=== PATIENT | male | born 1970 | race Caucasian/White ===

== ENCOUNTER 2017-12-15 09:00 | Outpatient (RCR) | payer OTHER, BC, SELFPAY | END 2017-12-15 09:01 | disposition home or self-care (01) | LOC: PT 09:00 | PROVIDERS: Family Provider Internal Medicine Adolescent Medicine; PCP Nurse Practitioner | DX: S39.012A Strain of muscle, fascia and tendon of lower back, initial encounter (principal) | CPT/HCPCS: 97010; 97012; 97014; 97110; 97140; G0283 ==

== ENCOUNTER → 2019-06-16 07:58 | Outpatient (CLI) | payer BC, SELFPAY ==
[2019-06-16 08:46] LABS: Basophils # 0.1 K/mm3 (0-0.2); Basophils % 0.9 % (0.1-2.0); Eosinophils # 0.2 K/mm3 (0.0-0.4); Eosinophils % 2.9 % (0.1-12.0); Hematocrit 50.6 % (42.0-52.0); Hemoglobin 16.1 g/dL (14.1-18.0); Lymphocytes # 1.4 K/mm3 (0.7-4.5); Lymphocytes % 21.8 % (10-50); Mean Corpuscular HGB Conc 31.9 g/dL (31.8-35.4); Mean Corpuscular Hemoglobin 29.2 pg (27.0-31.2); Mean Corpuscular Volume 91.6 fl (80-94); Mean Platelet Volume 7.5 fl (7.4-10.4); Monocytes # 0.4 K/mm3 (0.1-1.0); Monocytes % 6.5 % (1.7-9.3); Neutrophils # 4.4 K/mm3 (1.8-7.8); Neutrophils % 67.9 % (37.0-80.0); Platelet Count 232 K/mm3 (142-424); Red Blood Count 5.52 M/mm3 (4.60-6.20); White Blood Count 6.4 K/mm3 (4.8-10.8)
[2019-06-16 09:55] LABS: Alanine Aminotransferase 56 U/L (12-78); Albumin/Globulin Ratio 1.2 (1.1-1.8); Alkaline Phosphatase 69 U/L (46-116); Anion Gap 12.6 mEq/L (5-15); Aspartate Amino Transferase 40 U/L (15-37); Bilirubin,Total 0.5 mg/dL (0.2-1.0); Blood Urea Nitrogen 19 mg/dL (7-18); Calcium 9.2 mg/dL (8.5-10.1); Carbon Dioxide 28 mmol/L (21.0-32.0); Chloride 105 mmol/L (98-107); Chol/HDL Ratio 4.7 (1-3.5); Cholesterol 156 mg/dL (140-200); Creatinine,Serum 1.08 mg/dL (0.70-1.30); Estimated Glomerular Filt Rate 72 ml/min (>60); GFR (African American) 88 ML/MIN (>60); Globulin 3.4 gm/dl (1.3-3.2); Glucose 101 mg/dL (74-106); HDL Cholesterol 33 mg/dL (27-67); LDL Cholesterol 97 mg/dL (0-130); Potassium 4.6 mmoL/L (3.5-5.1); Sodium 141 mmol/L (136-145); Total Protein,Serum 7.4 gm/dL (6.4-8.2); Triglycerides 129 mg/dL (30-200); VLDL Cholesterol 26 mg/dL (0-40)
== END ==
PROVIDERS: PCP Internal Medicine Adolescent Medicine; Visit Provider Internal Medicine Adolescent Medicine
DX: Z00.00 Encounter for general adult medical examination without abnormal findings (principal); I10 Essential (primary) hypertension
CPT/HCPCS: 36415; 80053; 80061; 85025; G0103

== ENCOUNTER 2020-01-31 10:00 | Outpatient (RCR) | payer BC, SELFPAY ==
--- NOTE | 2019-12-26 12:39 | HMH.PTOPEV ---
PT Outpatient Evaluation Rehab PT Outpatient Evaluation Start: 12/26/19 11:35 Freq: Status: Active Protocol: Document 12/26/19 11:35 YENY (Rec: 12/26/19 12:39 YENY [id number]) Electronically Signed By Akbar Trevizo, PT 12/26/19 11:35 Outpatient Therapy Subjective History Subjective History Pt reports h/o chronic L sided LBP, however, reports exacerbation since 2018. Pt reports repeatitive activity after working 26yrs at [employer] 'hasn't helped'. Pt retired from [employer] on November 18 2019, however, reports same or worse LBP. Pt reports L>R sided LBP currrently, with intermittent L LE radicular s/ s to foot/ankle. (weakness, pain, itchy sensation) Chief Complaint Pain,Paresthesia,Weakness Symptom Type Ache,Sharp,Dull Symptoms Relieved By Rest/Positioning,Heat Symptoms Aggravated By Bending/Stooping,Physical Activity,Lifting Prior Functional Limitations Lifting,Housework Current Functional Limitations Lifting,Housework,Sleeping, Sitting,Recreation Activity, Bending/Stooping Symptom Description Constant but Variable Level of pain today (0-10) 2 Pain scale - at its best (0-10) 2 Pain scale - at its worst (0-10) 8 Lumbopelvic Eval Posture Thoracic Spine Posture Standing Position Neutral Lumbar Spine Posture Standing Position Neutral Assistive device Assistive Devices None / NA Gait Observation General Gait Pattern Observation Antalgic Gait Palapation tenderness left lumbar spinal tenderness Yes: 3/4 paraspinal tenderness Yes: 3/4 buttock tenderness Yes: 3/4 Lumbar/Sacral Palpation Findings Tenderness,Trigger Point Accessory Movement T-spine Vertebrae Accessory Movements [employer] [place] that Elicit Symptoms L4 left L5 left Range of Motion Lumbar Spine Active Flexion Range of 0-35 Motion (degrees) Lumbar Spine Active Extension Range of 0-15 Motion (degrees) Left Lumbar Spine Lateral Flexion Active 0-20 Range of Motion (degrees) Right Lumbar Spine Lateral Flexion 0-20 Active Range of Motion (degrees) Lumbar Spine ROM Limitations Soft Tissue Tightness,Pain Manual Muscle Test Right Knee Extension Strength Grade 5 Normal Knee Flexion Strength Grade 5 Normal Hip Flexion Strength Grade 5 Normal
--- NOTE | 2020-01-29 11:11 | HMH.RHREAS ---
Rehab Reassessment Rehab OP Re-assessment Start: 01/29/20 11:06 Freq: Status: Active Protocol: Document 01/29/20 11:07 YENY (Rec: 01/29/20 11:11 YENY [id number]) Electronically Signed By Akbar Trevizo, PT 01/29/20 11:07 Rehab Re-assessment Subjective Subjective PT REPORTS 3-4/10 LBP ON VAS, W/RADICULAR S/S INTO L LE, AND REPORTS NO SIGNIFICANT IMPROVEMENTS SINCE I EVAL Objective Objective Notes AROM: L-SPINE FLX 0-25, EXT 0- 10, R SB 0-20, L SB 0-30-MOST PAINFUL DIRECTION W/ PERIPHEREALIZATION OF S/S MMT: L HIP FLX 4-/5, L HS 4-/5 TTP: L LUMBAR PARA 2/4, L PIRI MM 3/4 Assessment Progress Assessment No Progress Assessment Notes PT SEEKING FOLLOW-UP APPT W/ PCP AND POSSIBLE MRI Patient goals met STG'S 09/28 Goals Not Met STG'S 05/29, LTG'S ALL Plan Plan PT TO HOLD SKILLED P.T. FOLLOWING THIS VISIT D/T LACK OF PROGRESS, AND SEEK FOLLOW- UP W/PCP AND LUMBAR SPINE MRI Time and Billing Re-Eval Time 15 Re-Eval Billing Units 1 PHYSICIAN CERTIFICATION: I certify the specified therapy services for Ernesto Weaver are required, authorized, and reviewed every 30 days.
== END 2020-01-31 10:05 | disposition home or self-care (01) ==
LOC: PT 10:00
PROVIDERS: PCP Internal Medicine Adolescent Medicine; Visit Provider Internal Medicine Adolescent Medicine
DX: M54.42 Lumbago with sciatica, left side (principal)
CPT/HCPCS: 20560; 20561; 97010; 97012; 97014; 97035; 97110; 97140; 97163; 97164; G0283

== ENCOUNTER → 2020-02-07 14:12 | Outpatient (CLI) | payer BC, SELFPAY ==
--- NOTE | 2020-02-07 14:26 | MR_ITS ---
PROCEDURE: MR LUMBAR SPINE WO CON CLINICAL INDICATION: ACUTE LEFT SIDED LOW BACK PAIN WITH SCIATICA Low back pain, pain across back and down left leg the COMPARISON: No exams were available for comparison TECHNIQUE: Standard multiplanar multiecho sequences are performed without contrast. 3-D MIP and myelographic images are also rendered and reviewed FINDINGS: The spinal cord ends at the L1 level. T12-L1: Unremarkable. L1-L2: Unremarkable. L2-L3: Unremarkable. L3-L4: Unremarkable. L4-5: Unremarkable. L5-S1: There is grade 1 spondylitic spondylolisthesis of L5 on S1 of 8 mm with degenerative disc disease with bulging disc along with posterior annular fissure with associated facet hypertrophic change and severe bilateral foraminal narrowing. No extruded herniated disc evident. IMPRESSION: There is grade 1 spondylitic spondylolisthesis of L5 on S1 of 8 mm with degenerative disc disease with bulging disc along with posterior annular fissure with associated facet hypertrophic change and severe bilateral foraminal narrowing. No extruded herniated disc or canal stenosis evident. Dictated by: Andrade Coleman MD 02/08/2020 13:29 Electronically signed by Andrade Coleman MD in [place] 02/08/2020 13:29
== END ==
PROVIDERS: PCP Internal Medicine Adolescent Medicine; Visit Provider Internal Medicine Adolescent Medicine
DX: M54.42 Lumbago with sciatica, left side (principal)
CPT/HCPCS: 72148; 76376

== ENCOUNTER 2020-08-18 17:39 | Emergency (ER) | payer BC, SELFPAY ==
[2020-08-18 17:45] VITALS: BP 134/88; PULSE 78; RESP 18; TEMP 36.7; O2SAT 95; BMI 35.2
--- NOTE | 2020-08-18 18:21 | HMH.EDUTC ---
[facility] [place] Clinical Impression: Exposure to COVID-19 virus Disposition: Home, Self-Care Condition on Discharge: Good Instructions: Preventing the Spread of Coronavirus Discharge Instructions Additional Instructions: Drink plenty of fluids. Take tylenol for pain or fever. Return if you begin to have difficulty breathing. Follow up with your regular doctor. GO TO THE ER FOR ANY WORSENING SYMPTOMS Referrals: Todd Kuhn MD [Primary Care Provider] - Time of Disposition: 18:24 Medical Decision Making - Medical Records Medical records reviewed: No: I reviewed the patient's medical records. - Jaden Inquiry Pt receiving controlled substance: No Vital Signs: 08/18/20 17:45 Temperature 98.1 F Temperature Source Oral Pulse Rate [Left Brachial] 78 Respiratory Rate 18 Blood Pressure [Left Arm] 134/88 Blood Pressure Mean [Left Arm] 103 Blood Pressure Source [Left Arm] Automatic Cuff Blood Pressure Position [Left Arm] Sitting 02 Sat by Pulse Oximetry 95 Oxygen Delivery Method Room Air [facility] [place] - General Stated complaint: covid test Time Seen by Provider: 08/18/20 18:21 Mode of Arrival: Ambulatory Source of Information: Patient Limitations: No Limitations Description of Symptoms (Recalled from Triage Doc. by RN): PATIENT REQUESTING COVID TEST D/T EXPOSURE; DENIES SYMPTOMS HEENT Symptoms (Recalled from RN notes): No Resp Symptoms (Recalled from RN notes): No Skin Symptoms (Recalled from RN notes): No MS Symptoms (Recalled from RN notes): No Functional Status (Recalled from RN notes): WNL - History of Present Illness Provider Complaint: His son was diagnosed with covid around 1 week ago. This patient has not had any symptoms. He needs a test for his employer. - Related Data Home Medications Medication Instructions Recorded Confirmed Aspirin [Aspir 81] 81 mg PO DAILY 10/15/19 10/22/19 Nebivolol HCl [Bystolic] 5 mg PO DAILY 10/15/19 10/22/19 Allergies Allergy/AdvReac Type Severity Reaction Status Date / Time No Known Allergies Allergy Verified 10/15/19 14:02 - Worker's Comp Is this a Worker's Comp case?: No [facility] History - Hepatitis A Screen Drug use history?: No High risk sexual behaviors?: No History of sexually transmitted infection?: No Currently employed?: No Childcare worker?: No Do you have indoor plumbing?: Yes Do you have electricity?: Yes Attestation statement:: This patient has been screened for Hepatitis A risk factors. I have reviewed the patient's past medical history: Yes Medical History: Reports:: Hypertension Denies:: Cancer, Diabetes Mellitus Type 1, Diabetes Mellitus Type 2, Internal Pacemaker, MRSA, Seizures Laterality Cases: Left: Arthroscopy Shoulder, Bilateral: Carpal Tunnel Release Other Surgeries: No: Pacemaker Amputation: No Fractures: No - Social History Smoking Status: Current every day smoker # Packs/Day (cigarettes): 1 Alcohol Intake: never Occupational Status: other Housing: house Household Members: family Family Hx:: No significant family history ROS Obtained: Yes All systems reviewed & no additional complaints - Constitutional Constitutional: Reports system reviewed and no additional complaints, except as docu - Eyes Eyes: Reports system reviewed and no additional complaints, except as docu - ENT Ears, Nose, Mouth, and Throat: Reports system reviewed and no additional complaints, except as docu - Cardiovascular Cardiovascular: Reports system reviewed and no additional complaints, except as docu - Respiratory Respiratory: Yes system reviewed and no additional complaints, except as docu - Gastrointestinal Gastrointestingal: Reports: system reviewed and no additional complaints, except as docu Physical Exam - General General appearance: alert, in no apparent distress - Head Head exam: atraumatic, normocephalic, normal inspection - Eye Eye exam: Present: normal appearance, PERRL, EOMI - ENT ENT
[2020-08-18 18:26] VITALS: BP 134/88; PULSE 78; RESP 18; TEMP 36.7; O2SAT 95
[2020-08-21 09:43] LABS: Covid-19 Nasal PCR Sendout Lex NOT DETECTED
== END 2020-08-18 18:30 | disposition home or self-care (01) ==
PROVIDERS: Emergency Provider Nurse Practitioner Family; PCP Internal Medicine Adolescent Medicine
DX: Z20.828 Contact with and (suspected) exposure to other viral communicable diseases (principal); I10 Essential (primary) hypertension; F17.210 Nicotine dependence, cigarettes, uncomplicated; Z79.899 Other long term (current) drug therapy
CPT/HCPCS: 99201; U0004

== ENCOUNTER → 2020-12-16 16:37 | Outpatient (CLI) | payer BC, SELFPAY ==
[2020-12-16 17:48] LABS: Chloride 104 mmol/L (98-107); Potassium 4.2 mmoL/L (3.5-5.1); Sodium 138 mmol/L (136-145)
[2020-12-16 17:51] LABS: Alanine Aminotransferase 39 U/L (12-78); Albumin Level 4.7 g/dl (3.5-5.0); Albumin/Globulin Ratio 1.8 (1.1-1.8); Alkaline Phosphatase 73 U/L (38-126); Anion Gap 11.2 mEq/L (5-15); Aspartate Amino Transferase 46 U/L (17-59); Bilirubin,Total 0.5 mg/dl (0.2-1.3); Blood Urea Nitrogen 19 mg/dl (9-20); Carbon Dioxide 27 mmol/L (22.0-30.0); Estimated Glomerular Filt Rate 89 ml/min (>60); GFR (African American) 108 ML/MIN (>60); Globulin 2.6 g/dL (1.3-3.2); Total Protein,Serum 7.3 g/dl (6.3-8.2)
[2020-12-16 17:52] LABS: Calcium 9.6 mg/dl (8.4-10.2); Glucose 86 mg/dl (74-100)
== END ==
PROVIDERS: Visit Provider Internal Medicine Adolescent Medicine
DX: I10 Essential (primary) hypertension (principal)
CPT/HCPCS: 36415; 80053

== ENCOUNTER → 2021-05-19 12:13 | Outpatient (CLI) | payer BC, SELFPAY ==
--- NOTE | 2021-05-19 | CA_ITS ---
APPROVED REPORT Exam: Exercise Treadmill Technologist: Chrissie Sebly Ht: 5 ft 11 in Wt: 235 lbs BSA: 2.26 m2 HR: 50 bpm BP: 126/78 mmHg Indications: Shortness of Breath Medical History Medications: Aspirin,,,,, Bystolic,,,,, Stress Test Details Test: Elvis HR Resting HR: 51 bpm Max Heart Rate (APMHR): 168.843011 bpm Max HR Achieved: 114 bpm Target HR (85% APMHR): 142.498627 bpm % of APMHR: 67.86 Recovery HR: 66 bpm BP Resting BP: 126.0/78.0 mmHg Max BP: 160.0/70.0 mmHg Recovery BP: 134.0/78.0 mmHg ECG Resting ECG: Marked sinus bradycardia. Clinical Exercise duration: 10:00 min Highest Stage Achieved: Exercise capacity: 12.8 METs Stress ECG Conclusion Patient exercised 10:00 on Elvis Protocol. Test stopped due to shortness of air, fatigue. Symptoms: No chest pain. Arrhythmias/Ectopy: Occasional PAC, rare PVC. ST-T Changes: Normal ST response to heart rate achieved. Conclusion: Normal GXT to heart rate achieved (68% of PM). Blunted heart rate on Bystolic. Myoview images reported separately. Test Summary RECOVERY 05:00 0.0 0.0 65 . 134/ 78 . . REST . . . . . . . Standing REST 04:12 0.0 0.0 51 . 126/ 78 . . Stage 1 01:00 10.0 1.7 74 . . . . Stage 1 02:00 10.0 1.7 78 . . . . Stage 1 03:00 10.0 1.7 78 . 126/ 70 . . Stage 2 01:00 12.0 2.5 84 . . . . Stage 2 02:00 12.0 2.5 86 . . . . Stage 2 03:00 12.0 2.5 90 . 128/ 68 . . Stage 3 01:00 14.0 3.4 97 . . . . Stage 3 02:00 14.0 3.4 98 . 146/ 70 . . Stage 3 . . . . . . . Myoview Injected Stage 3 03:00 14.0 3.4 98 . 146/ 70 . . Stage 4 01:00 16.0 4.2 114 . . . Stop exercise at 10:00 RECOVERY 01:00 0.0 0.0 87 . 160/ 70 . . RECOVERY 02:00 0.0 0.0 69 . 160/ 70 . . RECOVERY 03:00 0.0 0.0 70 . 157/ 81 . . RECOVERY 04:00 0.0 0.0 63 . 157/ 81 . . RECOVERY 05:00 0.0 0.0 65 . 134/ 78 . . RECOVERY 05:21 0.0 0.0 62 . 134/ 78 . . Electronically signed by : Filiberto Velasquez MD 05/19/2021 19:18:20
--- NOTE | 2021-05-19 12:19 | NM_ITS ---
APPROVED REPORT Exam: Nuclear Stress Test Indication: chest pain Patient Location: Outpatient Stress Tech: Chrissie Selby [place] Tech:Rose Gillette, MIKYT, RT (R)(N) Ht: 5 ft 11 in Wt: 235 lbs HR: 50 bpm BP: 126/78 mmHg BSA: 2.26 m2 BMI: 32.7 History: chest pain Procedure: Patient exercised on Elvis protocol 10 minutes and sec, resting heart rate 50 bpm, resting blood pressure 126/78 mmHg, with exercise maximum heart rate achived was 114 bpm which is 68 % of the maximum predicted heart rate and blood pressure was 160/70 mmHg. Test was stopped due to soa and fatigue. Patient denied any complaint of chest pain. Patient has good exercise capacity, achieved 12.8 METs of workload on treadmill, the blood pressure response to exercise was Adequate. Electrocardiogram Resting electrocardiogram shows sinus rhythm, with exercise there is less than 1.[address] segment depression noted from the baseline EKG. The EKG portion of the exercise Myoview was nondiagnostic as patient did not achieve the target heart rate. Cardiac Stress and Resting SPECT Images: Cardiac Stress and Resting SPECT images were obtained using technetium 99m Myoview 31.3 mCi stress and 10.30 mCi at rest. Gated SPECT for analysis of segmental wall motion and calculation of the ejection fraction also done. Prone images were also obtained. Cardiac stress and rest SPECT images show uniform myocardial activity without segmental perfusion abnormality, computer derived ejection fraction is 50% with no regional wall motion abnormality, right ventricle is mildly enlarged with normal contractility. Conclusion: 1. The EKG portion of the exercise Myoview is nondiagnostic as patient did not achieve the target heart rate, patient has good exercise capacity achieved 12.8 mets of workload on treadmill, the blood pressure response to exercise was adequate, there was no exercise-induced chest discomfort. 2. No scintigraphic evidence of reversible ischemia seen at this level of exercise, computer derived ejection fraction is 50% with no regional wall motion abnormality, right ventricle is mildly enlarged with normal contractility. Electronically signed by : Filiberto Velasquez MD 05/19/2021 19:46:31
--- NOTE | 2021-05-19 14:06 | HMH.ITSHM ---
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 []BYSTOLIC ASA
== END ==
LOC: RAD 12:14
PROVIDERS: PCP Internal Medicine Adolescent Medicine; Visit Provider Nurse Practitioner Family
DX: R06.02 Shortness of breath (principal); R07.9 Chest pain, unspecified
CPT/HCPCS: 78452; 93017; A9502

== ENCOUNTER → 2021-07-27 09:06 | Outpatient (CLI) | payer BC, SELFPAY | PROVIDERS: PCP Internal Medicine Adolescent Medicine; Visit Provider Nurse Practitioner | DX: Z20.822 Contact with and (suspected) exposure to COVID-19 (principal) | CPT/HCPCS: C9803; U0003; U0005 ==

== ENCOUNTER → 2021-09-17 07:53 | Outpatient (CLI) | payer BC, SELFPAY ==
[2021-09-17 09:15] LABS: Alanine Aminotransferase 67 U/L (12-78); Albumin Level 4.4 g/dl (3.5-5.0); Albumin/Globulin Ratio 1.6 (1.1-1.8); Alkaline Phosphatase 65 U/L (38-126); Anion Gap 13.6 mEq/L (5-15); Aspartate Amino Transferase 50 U/L (17-59); Bilirubin,Total 0.4 mg/dl (0.2-1.3); Blood Urea Nitrogen 15 mg/dl (9-20); Calcium 9.7 mg/dl (8.4-10.2); Carbon Dioxide 31 mmol/L (22.0-30.0); Chloride 102 mmol/L (98-107); Chol/HDL Ratio 4.8 (1-3.5); Cholesterol 173 mg/dl (140-200); Estimated Glomerular Filt Rate 78 ml/min (>60); GFR (African American) 95 ML/MIN (>60); Globulin 2.7 g/dL (1.3-3.2); Glucose 86 mg/dl (74-100); HDL Cholesterol 36 mg/dl (40-60); Potassium 4.6 mmoL/L (3.5-5.1); Sodium 142 mmol/L (136-145); Total Protein,Serum 7.1 g/dl (6.3-8.2); Triglycerides 272 mg/dl (30-150); VLDL Cholesterol 54 mg/dL (0-40)
[2021-09-17 09:26] LABS: Direct LDL Cholesterol 87.96 mg/dL (100-129)
== END ==
PROVIDERS: Visit Provider Nurse Practitioner Family
DX: Z00.00 Encounter for general adult medical examination without abnormal findings (principal); R07.9 Chest pain, unspecified; R06.02 Shortness of breath
CPT/HCPCS: 36415; 80053; 80061

== ENCOUNTER 2022-01-31 11:31 | Emergency (ER) | payer BC, SELFPAY ==
[2022-01-31 11:40] VITALS: BP 132/82; PULSE 86; RESP 19; TEMP 36.7; O2SAT 98; BMI 33.5
--- NOTE | 2022-01-31 11:59 | HMH.EDUTC ---
[facility] [place] Disposition Clinical Impression: Otitis media Qualifiers: Otitis media type: suppurative Chronicity: acute Laterality: right Recurrence: non-recurrent Spontaneous tympanic membrane rupture: without spontaneous rupture Qualified Code(s): H66.001 - Acute suppurative otitis media without spontaneous rupture of ear drum, right ear Disposition: Home, Self-Care Condition on Discharge: Good Instructions: Middle Ear Infection Additional Instructions: Start antibiotic as soon as possible and be sure to take as ordered for full length of time even though he should start feeling better in 24-48 hours. Tylenol or Motrin as needed for pain or fever Encourage fluids, water, Gatorade, Powerade, Pedialyte if /toddler/child Warm compresses often helps when placed over ear Return immediately for new or worsening symptoms no noticeable improvement in 48-72 hours and in 10-14 days to ensure the ears are return to baseline. Follow-up with primary care Prescriptions: Amoxicillin [Amoxicillin 500mg Tab] 500 mg PO BID 10 Days #20 tab Transmission Status: Pending to [id number] Referrals: Todd Kuhn MD [Primary Care Provider] - Time of Disposition: 12:15 Medical Decision Making - Jaden Inquiry Pt receiving controlled substance: No Vital Signs: 01/31/22 11:40 Temperature 98.1 F Temperature Source Oral Pulse Rate [Right Brachial] 86 Respiratory Rate 19 Blood Pressure [Right Arm] 132/82 Blood Pressure Mean [Right Arm] 98 Blood Pressure Source [Right Arm] Automatic Cuff Blood Pressure Position [Right Arm] Sitting 02 Sat by Pulse Oximetry 98 Oxygen Delivery Method Room Air - Lab Data Lab Results 01/31/22 11:42: Group A Strep Rapid Negative 01/31/22 11:45: Influenza Type A Ag Negative, Influenza Type B Ag Negative Orders (Tests/Meds): ORDERS Category Date Time Status Strep Screen Confirmation Stat Micro 01/31/22 11:42 Received [facility] [place] HPI - General Chief complaint: Urgent [facility] Stated complaint: sore throat,weakness Time Seen by Provider: 01/31/22 11:59 Mode of Arrival: Ambulatory Source of Information: Patient Limitations: No Limitations Description of Symptoms (Recalled from Triage Doc. by RN): PATIENT C/O SORE THROAT, WEAKNESS, DECREASED ENERGY, RIGHT NECK TENDERNESS, AND BILATERAL EAR PAIN HEENT Symptoms (Recalled from RN notes): Yes Resp Symptoms (Recalled from RN notes): No Skin Symptoms (Recalled from RN notes): No MS Symptoms (Recalled from RN notes): No Functional Status (Recalled from RN notes): WNL - History of Present Illness Provider Complaint: 52 yr old male presents for sore throat, rt neck pain, ear pain, and weakness for 3 days - Related Data Home Medications Medication Instructions Recorded Confirmed Aspirin [Aspir 81] 81 mg PO DAILY 10/15/19 10/22/19 Nebivolol HCl [Bystolic] 5 mg PO DAILY 10/15/19 10/22/19 Previous Rx's Medication Instructions Recorded Amoxicillin [Amoxicillin 500mg Tab] 500 mg PO BID 10 Days #20 tab 01/31/22 Allergies Allergy/AdvReac Type Severity Reaction Status Date / Time No Known Allergies Allergy Verified 10/15/19 14:02 - Worker's Comp Is this a Worker's Comp case?: No [facility] History - Hepatitis A Screen Attestation statement:: This patient has been screened for Hepatitis A risk factors. I have reviewed the patient's past medical history: Yes Medical History: Reports:: Hypertension Denies:: Cancer, Diabetes Mellitus Type 1, Diabetes Mellitus Type 2, Internal Pacemaker, MRSA, Seizures Laterality Cases: Left: Arthroscopy Shoulder, Bilateral: Carpal Tunnel Release Other Surgeries: No: Pacemaker Amputation: No Fractures: No - Social History Smoking Status: Current every day smoker # Packs/Day (cigarettes): 1 Alcohol Intake: never Occupational Status: other Housing: house Household Members: family Family Hx:: No significant family history ROS Obtained: Yes Systems reviewed as appropriate & no additi
[2022-01-31 12:05] LABS: UTC Influenza A Antigen Negative (Negative); UTC Influenza B Antigen Negative (Negative)
[2022-01-31 12:10] LABS: Strep Scrn Group A (Rapid) Negative (Negative)
[2022-01-31 12:16] VITALS: BP 132/82; PULSE 86; RESP 19; TEMP 36.7; O2SAT 98
== END 2022-01-31 12:18 | disposition home or self-care (01) ==
PROVIDERS: Emergency Provider Nurse Practitioner Family; PCP Internal Medicine Adolescent Medicine
DX: H66.001 Acute suppurative otitis media without spontaneous rupture of ear drum, right ear (principal)
CPT/HCPCS: 87430; 87804; 99212; G0463

== ENCOUNTER 2023-08-21 10:37 | Emergency (ER) | payer BC, SELFPAY ==
[2023-08-21 10:39] VITALS: BP 177/101; PULSE 68; RESP 18; TEMP 36.6; O2SAT 98; BMI 32.1
[2023-08-21 10:43] VITALS: BP 177/101; PULSE 66; O2SAT 98
[2023-08-21 10:44] VITALS: BP 173/112; PULSE 66; O2SAT 99
--- NOTE | 2023-08-21 10:50 | XR_ITS ---
PROCEDURE INFORMATION: Exam: XR Chest Exam date and time: 08/21/2023 10:56 AM Age: 53 years old Clinical indication: Cough TECHNIQUE: Imaging protocol: Radiologic exam of the chest. Views: 2 views. COMPARISON: No relevant prior studies available. FINDINGS: Lungs: Unremarkable. No consolidation. Pleural spaces: Unremarkable. No pleural effusion. No pneumothorax. Heart/Mediastinum: Unremarkable. No cardiomegaly. Bones/joints: Unremarkable. IMPRESSION: No acute findings.
--- NOTE | 2023-08-21 10:51 | PC.NURSE ---
DR NGUYEN AT BEDSIDE
--- NOTE | 2023-08-21 10:54 | HMH.EDGENADL ---
Discharge Plan Disposition Patient Disposition: Home, Self-Care Prescriptions Prescriptions: New [id number]-lxepeahft-PP [Bromfed DM] 2-30-10 mg/5 mL syrup 5 ml PO Q6H PRN (Reason: cold symptoms) Qty: 118 0RF No Action amoxicillin 500 MG tablet 500 mg PO BID 10 Days Qty: 20 0RF aspirin 81 MG tablet,delayed release (DR/EC) 81 mg PO DAILY nebivolol 5 MG tablet 5 mg PO DAILY Referrals Follow up/Referrals: Cyn Allen APRN [Primary Care Provider] - See instructions Activity Restrictions/Add. Instructions Additional Instructions/Restrictions: At this time it was felt you are safe to be discharged home. If new or worsening symptoms please do not hesitate to return the emergency department. If symptoms persist please follow-up with your family doctor as you are able. Please take your medication as prescribed. Clinical Impressions Clinical Impression: Upper respiratory infection Discharge ED Provider: Teddy Jhaveri General Adult HPI General Chief complaint: Upper Respiratory Infection Stated complaint: cough,side and back pain,throat scratchy Time Seen by Provider: 08/21/23 10:41 Mode of Arrival: Ambulatory Source of Information: Patient Limitations: No Limitations Description of Symptoms (Recalled from ER Triage Doc. by RN): c/o coughing, irritated throat, middle back pain more on the right when he takes a good breath in. STates that his cough has been non productive and productive at times, symptoms for one week History of Present Illness HPI narrative: Patient is a 53-year-old male with past medical history of hypertension presents emergency department for multiple complaints. Patient has had intermittent productive cough for the last week, scratchy throat. There is associated right paraspinal back pain upon forceful coughing. No other acute complaints at this time. Related Data Home Medications Medication Instructions Recorded Confirmed aspirin 81 mg tablet,delayed 81 mg PO DAILY prevention 10/15/19 10/22/19 release nebivolol 5 mg tablet 5 mg PO DAILY bp 10/15/19 10/22/19 Previous Rx's Medication Instructions Recorded amoxicillin 500 mg tablet 500 mg PO BID 10 days #20 tabs 01/31/22 [id number]-lomntrkwpshhhea-HV 5 ml PO Q6H PRN cold symptoms #118 08/21/23 2 mg-30 mg-10 mg/5 mL oral syrup mL (Bromfed DM) Allergies Allergy/AdvReac Type Severity Reaction Status Date / Time No Known Allergies Allergy Verified 10/15/19 14:02 [facility] Disclaimer: The information contained in this section may have been updated after the patient was seen, as this information can be updated by other users. Social History Smoking Status: Current every day smoker alcohol intake: never current occupational status: other Travel in the last 8 weeks: None household members: family housing: house current occupational exposures/hazards: No caffeine: Yes ROS Obtained: Yes Systems reviewed as appropriate & no additional complaints except as documented Physical Exam General General appearance: alert and in no apparent distress Head Head exam: atraumatic and normocephalic Eye Eye exam: Present PERRL and EOMI ENT ENT exam: Present mucous membranes moist and other (Erythematous posterior oropharynx without exudate) Neck Neck exam: Present normal inspection Chest Chest inspection: Present normal inspection and symmetric chest wall rise Respiratory Respiratory exam: Present normal lung sounds bilaterally; Absent respiratory distress Cardiovascular Cardiovascular exam: Present regular rate and normal rhythm Abdominal Exam Abdominal exam: Present soft; Absent tenderness Extremities Exam Extremities exam: Present normal inspection Neurological Exam Neurological exam: Present alert Psychiatric Psychiatric exam: Present normal affect Skin Skin exam: Present warm and dry Medical Decision Making Jaden Inquiry Pt receiving controlled substance: No
--- NOTE | 2023-08-21 11:06 | PC.NURSE ---
Pt gone to RAD via wheelchair
--- NOTE | 2023-08-21 11:10 | PC.NURSE ---
pt back from xray
[2023-08-21 11:12] LABS: Coronavirus 19, PCR Not Detected (NotDetected); Influenza A, PCR Not Detected (NotDetected); Influenza B, PCR Not Detected (NotDetected)
[2023-08-21 11:22] LABS: Strep Scrn Group A (Rapid) Negative (Negative)
[2023-08-21 11:51] VITALS: BP 120/75; PULSE 60; RESP 18; TEMP 36.8; O2SAT 96
== END 2023-08-21 11:56 | disposition home or self-care (01) ==
PROVIDERS: Emergency Provider Emergency Medicine; PCP Nurse Practitioner Family
DX: J06.9 Acute upper respiratory infection, unspecified (principal); R05.9 Cough, unspecified; M54.6 Pain in thoracic spine; F17.200 Nicotine dependence, unspecified, uncomplicated; I10 Essential (primary) hypertension
CPT/HCPCS: 71046; 87430; 87636; 99284

== ENCOUNTER 2025-05-02 07:56 | Day surgery (SDC) | payer BC, SELFPAY ==
[2025-04-30 14:38] VITALS: BMI 31.4
--- NOTE | 2025-05-01 10:58 | EXP.HP ---
History of Present Illness *Admission Date: 05/02/25 *Reason for visit:: Personal history of adenomatous colon polyps *History of present illness: Mr. Weaver is a 55-year-old gentleman who is here for surveillance/screening colonoscopy secondary to a personal history of adenomatous colon polyps. The patient did have a colonoscopy in October 2019 and had 7 polyps (tubular adenomas x 7) which were removed. The examination is deemed medically necessary for screening/surveillance colonoscopy. The patient has been seen, interviewed and examined prior to the procedure by both myself and the anesthesia provider. [facility] Disclaimer: The information contained in this section may have been updated after the patient was seen, as this information can be updated by other users. Medical History Hyperlipemia Hypertension Surgical History Colonoscopy planned Family History Other No significant family history Social History (Updated 05/02/25 @ 09:04 by Miguel Angel Kulkarni CRNA) Smoking Status: Current every day smoker alcohol intake: never substance use type: denies use current occupational status: other Travel in the last 8 weeks?: None household members: family housing: house current occupational exposures/hazards: No caffeine: Yes Have you lived/traveled outside [place] in past 30 days?: No Contact w/someone who lives/traveled outside [place] past 30 days?: No Exposure to someone with infectious disease in past 14 days?: No Do you have a fever (greater than 100.4 F or 38 C)?: No Have you tested positive for COVID-19?: No Exposed to someone with COVID-19 in past 14 days?: No Do you have a sore throat?: No Do you have a cough?: No Do you have any weakness?: No Are you experiencing any nausea/vomitting?: No Do you have any diarrhea?: No Are you experiencing any unusual bleeding?: No Do you have any muscle aches/pain?: No Do you have any abdominal pain?: No Are you experiencing loss of taste or smell?: No Other Medical History Have you received the Flu Vaccine for this season: Yes Have you received the Pneumonia Vaccine: No Review of Systems Review of Systems Review of systems (narrative): Negative *Cardiovascular Comments: Negative *Gastrointestinal Comments: Negative *Genitourinary Comments: Negative *Musculoskeletal Comments: Negative *Neurologic Comments: Negative Meds Home Medications and Allergies Home Medications ?Medication ?Instructions ?Recorded ?Confirmed ?Type aspirin 81 mg tablet,delayed 81 mg PO DAILY prevention 10/15/19 05/02/25 History release atorvastatin 40 mg tablet 40 mg PO DAILY 04/30/25 04/30/25 History bisoprolol fumarate 5 mg tablet 5 mg PO DAILY 04/30/25 04/30/25 History New Prescriptions to Start Prescriptions: Allergies Allergy/AdvReac Type Severity Reaction Status Date / Time No Known Allergies Allergy Verified 10/15/19 14:02 Exam Data for Last 24 hours I & O for Last 24 hours: Intake & Output 04/28/25 04/29/25 04/30/25 05/01/25 23:59 23:59 23:59 23:59 Weight 225 lb *Routine HEENT Exam Head: Present normocephalic Eye: Present EOMI and PERRL ENT: Present mucous membranes moist *Routine Neck Exam Neck: Present supple *Routine Respiratory Exam Respiratory: Present CTA bilaterally *Routine Cardiovascular Exam Cardiovascular: Present RRR *Routine Abdominal Exam Abdominal: Present soft and normoactive bowel sounds; Absent tenderness *Routine Rectal Exam Rectal:: deferred *Routine Genitalia Exam Genitalia:: deferred *Routine Extremities Exam Extremities: Absent cyanosis, clubbing or edema *Routine Skin Exam Skin: Present warm; Absent rash *Routine Neurological Exam Neurological: Present alert and oriented X3 Assessment and Plan *Assessment and plan (1) Personal history of adenomatous and serrated colon polyps: Status: Acute Category: Medical Code(s): Z86.0101 - Personal history of adenomatous and serrated colon polyps (2) Screening for colon cancer: Status: Acute Category: Medical Code(s): Z12.11 - Encounter for screening for malignant neoplasm of colon Plan A/P: 1. Personal history of adenomatous colon polyps/screening for colon cancer is the preprocedural diagnosis. The patient will be anesthetized/sedated using MAC sedation. The patient has been seen and examined. Cardiac and lung assessment prior to the examination is stable. Proceed with planned screening/surveillance colonoscopy.
[2025-05-02 08:36] VITALS: BP 143/78; PULSE 63; RESP 18; TEMP 36.4; O2SAT 98; BMI 31.4
[2025-05-02] MEDS: LACTATED RINGERS 1000ML 1,000 ML 50 ML IV (08:53)
--- NOTE | 2025-05-02 09:03 | P.PNANES_ITS ---
[facility] Disclaimer: The information contained in this section may have been updated after the patient was seen, as this information can be updated by other users. Medical History Hyperlipemia Hypertension Surgical History Colonoscopy planned Family History Other No significant family history Social History (Updated 05/02/25 @ 08:48 by Es Araiza RN) Smoking Status: Current every day smoker alcohol intake: never substance use type: denies use current occupational status: other Travel in the last 8 weeks?: None household members: family housing: house current occupational exposures/hazards: No caffeine: Yes [facility] [place] Anesthesia Checklist Patient Identification Patient Identification: Arm Band Structural Data Admitted From: Home Planned Operative Procedure/s: Colonoscopy Consent for Planned Operative Procedure(s) Verified: Yes Verified Documents: Surgical Consent and History and Physical NPO Status Verified Time NPO: 00:00 Additional verifications Anesthesia Reactions: No Airway Assessment Mallampati Score:: Class II C-Spine Mobility Assessed: Yes TMJ Mobility Assessed: Yes Dentition: Good Dentition Neurological Assessment Level of Consciousness: Awake, Alert and Appropriate Anesthesia Plan Anesthesia Risk discussed: Yes Anesthesia Plan: Verified ASA Class: II Anesthesia Type: MAC
--- NOTE | 2025-05-02 09:38 | HMH.PROCNOTE ---
[facility] Procedure Note Date: 05/02/25 Time: 10:02 Procedure Note:: Colonoscopy Procedure Report: Colonoscopy with cold snare polypectomy Endoscopist: Donald Benz II, MD Referring physician: Todd Kuhn M.D. Date of Procedure: May 02, 2025 Equipment: [employer] [id number] adult colonoscope Sedation: MAC sedation Indication: Mr. Weaver is a 55-year-old gentleman who is here for surveillance/screening colonoscopy secondary to a personal history of adenomatous colon polyps. The patient did have a colonoscopy in October 2019 with ar and had 7 polyps (tubular adenomas x 7) which were removed. The patient reports no abdominal pain, weight loss, change in his bowel habits or rectal bleeding. He reports no family history of colon cancer. Procedure: Prior to the procedure, a history and physical exam was performed, and patient's medications and allergies were reviewed. The risks, benefits and alternatives of the sedation and procedure were discussed with the patient. All questions were answered and informed consent was obtained. The patient was brought to the procedure room. Patient identification and proposed procedure were verified by the physician and the nurse. The patient was placed in a left lateral decubitus position and the scope was passed under direct vision. Throughout the procedure, the patient's blood pressure, pulse, and oxygen saturations were monitored continuously. The colonoscopy was accomplished without difficulty. The patient tolerated the procedure well. Findings: On digital rectal examination there was normal rectal tone. There were no external hemorrhoids. The prostate was 2+ with some firmness along the left upper lateral margin. The colonoscope was introduced through the anal canal to the rectum and advanced to the cecum. The ileocecal valve and appendiceal orifice were identified. The scope was advanced a short distance into the ileum which appeared grossly normal. The scope was then withdrawn into the colon. There were 4 polyps (ascending x 1 (3 mm) and descending x 3 (3, 3 and 4 mm)). These were all removed via cold snare polypectomy. The remaining cecum, ascending and transverse colon and mucosa were grossly normal. There were scattered diverticuli throughout the descending and sigmoid colon (LEFT colon). The rectum itself was normal. Upon retroflexion within the rectum there were grade 2 internal hemorrhoids. The preparation was excellent throughout with [place] Preparation Score of 9. The cecal time was 12 minutes. Impression: 1. Diminutive colonic polyps x 4 2. Left-sided diverticulosis 3. Grade 2 internal hemorrhoids Plan: I will follow-up the polyp histology and recommend repeat surveillance colonoscopy again in 5 years. I would encourage psyllium bulking fiber supplementation on a maintenance basis.
[2025-05-02 10:03] VITALS: BP 113/64; PULSE 65; RESP 18; TEMP 36.3; O2SAT 96
[2025-05-02 10:13] VITALS: BP 105/60; PULSE 64; RESP 18; O2SAT 96
[2025-05-02 10:23] VITALS: BP 114/62; PULSE 56; RESP 17; O2SAT 99
[2025-05-02 10:33] VITALS: BP 113/81; PULSE 55; RESP 17; O2SAT 99
== END 2025-05-02 10:41 | disposition home or self-care (01) ==
PROVIDERS: PCP Internal Medicine Adolescent Medicine; Visit Provider Internal Medicine Gastroenterology
PROC: 0DJD8ZZ Inspection of Lower Intestinal Tract, Via Natural or Artificial Opening Endoscopic (ICD-10-PCS; CPT 45378; principal; 2025-05-02 09:30)
DX: Z12.11 Encounter for screening for malignant neoplasm of colon (principal); K63.5 Polyp of colon; K57.30 Diverticulosis of large intestine without perforation or abscess without bleeding; K64.1 Second degree hemorrhoids; E78.5 Hyperlipidemia, unspecified; I10 Essential (primary) hypertension; F17.210 Nicotine dependence, cigarettes, uncomplicated; Z86.0101 Personal history of adenomatous and serrated colon polyps; Z79.82 Long term (current) use of aspirin; Z79.899 Other long term (current) drug therapy
CPT/HCPCS: 45385; J2003; J2704; J7120